=== PATIENT | female | born 1990 | race African-American/Black ===

== ENCOUNTER 2019-07-27 22:21 | Emergency (ER) | payer OTHER ==
[~2019-07-27] VITALS: Ht 162.6 cm; Wt 55.8 kg
--- NOTE | 2019-07-27 22:25 | NUR ---
PT BIB EMS D/T PT WAS FOUND IN A SOBER LIVING BATHROOM WEAK AND LETHARGIC. PT ADMITS TO TAKING 2 TABS XANAX DOSAGE UNKNOWN. PT DENIES SI/HI. NON ACUTE DISTRESS NOTED. VSS. PT CONNECTED TO THE DEWATERER OPERATOR AND POX
--- NOTE | 2019-07-27 22:53 | NUR ---
AWAITING URINE SAMPLE
[2019-07-27] MEDS ORDERED: IV NS 0.9% 1,000 ML BAG IV ONE (23:00)
[2019-07-27 23:03] LABS: CALCIUM, SERUM 8.5 mg/dL (8.5-10.1); CREATININE 0.6 mg/dL (0.6-1.3); POTASSIUM 2.9 mmol/L (3.5-5.1)
--- NOTE | 2019-07-27 23:08 | NUR ---
PT SENT TO CT
[2019-07-27 23:10] LABS: ALBUMIN 4.3 g/dL (3.4-5.0); BILIRUBIN,DIRECT 0.1 mg/dL (0.0-0.2); BILIRUBIN,TOTAL 0.2 mg/dL (0.2-1.0); SALICYLATE 4.9 mg/dL (2.8-20.0); TOTAL PROTEIN, SERUM 8.2 g/dL (6.4-8.2)
--- NOTE | 2019-07-27 23:14 | NUR ---
PT BACK FROM CT
--- NOTE | 2019-07-27 23:16 | NUR ---
Patient is resting comfortably in bed. Easily aroused. VSS.
[2019-07-27 23:17] LABS: BASOPHILS # (AUTO) 0.1 /CMM (0.0-0.2); BASOPHILS % (AUTO) 0.9 % (0.0-2.0); HEMATOCRIT 26 % (33-45); HEMOGLOBIN 7.8 g/dL (11.5-14.8); LYMPHOCYTES # (AUTO) 3.5 /CMM (0.8-4.8); LYMPHOCYTES % (AUTO) 38.4 % (20.0-44.0); MEAN CORPUSCULAR HGB CONC 30 g/dl (31.0-36.0); MEAN CORPUSCULAR VOLUME 62 fL (82-100); MONOCYTES # (AUTO) 0.3 /CMM (0.1-1.30); MONOCYTES % (AUTO) 3.1 % (2.0-12.0); NEUTROPHILS # (AUTO) 5.2 /CMM (1.8-8.9); NEUTROPHILS % (AUTO) 56.6 % (43.0-81.0); PLATELET COUNT (AUTO) 497 /CMM (150-450); RED BLOOD CELL COUNT(AUTO) 4.29 MIL/uL (4.0-5.2); WHITE BLOOD COUNT (AUTO) 9.2 K/uL (4.3-11.0)
--- NOTE | 2019-07-27 23:21 | NUR ---
"mary" Call her to cook pickled meat patient when ready. Mary is her sober living "mother"
[2019-07-27 23:38] LABS: LYMPHOCYTES % (MANUAL) 30 % (16-48); MONOCYTES % (MANUAL) 4 % (0-11.0); NEUTROPHILS % (MANUAL) 66 (42-76)
[2019-07-27 23:42] LABS: APPEARANCE,URINE Clear (CLEAR); BILIRUBIN,URINE Negative (NEGATIVE); BLOOD, URINE Negative Ery/uL (NEGATIVE); COLOR,URINE Light yellow (YELLOW); KETONES,URINE Negative (NEGATIVE); LEUKOCYTE ESTERASE ,URINE Negative (NEGATIVE); NITRITE, URINE Negative (NEGATIVE); PH,URINE 5.5 (5.0-8.0); PROTEIN,URINE Negative (NEGATIVE); UGLUCOSE Negative (NEGATIVE); UROBILINOGEN,URINE 0.2 EU/dL (0.2)
--- NOTE | 2019-07-27 23:42 | NUR ---
urine collected and sent to lab
--- NOTE | 2019-07-28 01:16 | NUR ---
PT RESTING COMFORTABLY IN BED. VSS. NO ACUTE DISTRESS NOTED. SITER AT BEDSIDE FOR SAFETY
--- NOTE | 2019-07-28 03:20 | NUR ---
Patient is resting comfortably in bed. Easily aroused. VSS.
--- NOTE | 2019-07-28 03:48 | NUR ---
SPOKE W/ AMILCAR FROM POISON CONTROL REGARDING LAB RESULTS.
[2019-07-28] MEDS ORDERED: POTASSIUM CHLORIDE 20 MEQ TAB.PRT.SR PO ONE ×3 (04:18)
--- NOTE | 2019-07-28 04:20 | NUR ---
CALLED PT'S FRIEND NUZHAT TO COME MEDICAL TECHNOLOGIST HEMATOLOGY PATIENT
--- NOTE | 2019-07-28 04:35 | NUR ---
IV removed. Catheter intact and site benign. Pressure and 4x4 applied to site. No bleeding noted. Patient discharged to home in stable condition. Written and verbal after care instructions given. Patient verbalizes understanding of instruction and RX. Pt ambulated with steady gait.
[2019-07-28 04:36] VITALS: BP 128/76
--- NOTE | 2019-07-28 04:36 | NUR ---
PT PICKED UP BY MOTHER.
== END 2019-07-28 04:42 | disposition home or self-care (01) ==
LOC: ER 22:23
DX: T42.4X1A Poisoning by benzodiazepines, accidental (unintentional), initial encounter (principal); R00.0 Tachycardia, unspecified; E87.6 Hypokalemia; F10.129 Alcohol abuse with intoxication, unspecified; D50.9 Iron deficiency anemia, unspecified; Y90.8 Blood alcohol level of 240 mg/100 ml or more; Y92.89 Other specified places as the place of occurrence of the external cause
CPT/HCPCS: 36415 ×2; 70450; 80048; 80076; 80305; 80307; 80329; 81001; 82962; 85025; 86850; 93005; 99285; G0480; J7030; 81000-TC

== ENCOUNTER 2019-11-09 20:25 | Emergency (ER) | payer OTHER ==
[~2019-11-09] VITALS: Ht 162.6 cm; Wt 60.8 kg
--- NOTE | 2019-11-09 20:37 | NUR ---
PT AAOX4. C/O HEADACHE & JOINT PAIN X2 DAYS. WAS DISCHARGED FROM [facility] AND STATED SHE RECIEVED 2 BAGS OF BLOOD DUE TO HER HAVING LOW HGB. NO ACUTE DISTRESS NOTED. PT AMBULATORY WITH STEADY GAIT. RR EVEN AND UNLABORED.
[2019-11-09] MEDS: IV NS 0.9% 1,000 ML BAG IV ONE (21:00)
[2019-11-09] MEDS: ONDANSETRON HCL/PF 4 MG/2 ML VIAL IVP ONE (21:00)
[2019-11-09] MEDS: MORPHINE SULFATE INJ 2 MG/ML DISP.SYRIN IV ONE (21:00)
[2019-11-09] MEDS ORDERED: ONDANSETRON HCL/PF 4 MG/2 ML VIAL ONE (21:08)
[2019-11-09] MEDS ORDERED: MORPHINE SULFATE INJ 4 MG/ML DISP.SYRIN ONE (21:09)
--- NOTE | 2019-11-09 21:25 | NUR ---
LINE INITIATED LAC 20G, LABS SENT.
--- NOTE | 2019-11-09 21:43 | NUR ---
Patient is resting comfortably in bed with eyes closed. Easily aroused. VSS.
[2019-11-09 21:48] LABS: CALCIUM, SERUM 8.8 mg/dL (8.5-10.1); CREATININE 0.5 mg/dL (0.6-1.3); POTASSIUM 3.4 mmol/L (3.5-5.1)
[2019-11-09 21:50] LABS: BASOPHILS # (AUTO) 0.1 /CMM (0.0-0.2); BASOPHILS % (AUTO) 1.2 % (0.0-2.0); EOSINOPHILS % (AUTO) 1.5 % (0.0-6.0); HEMATOCRIT 28 % (33-45); HEMOGLOBIN 8.5 g/dL (11.5-14.8); LYMPHOCYTES # (AUTO) 4.4 /CMM (0.8-4.8); LYMPHOCYTES % (AUTO) 38.2 % (20.0-44.0); MEAN CORPUSCULAR HGB CONC 31 g/dl (31.0-36.0); MEAN CORPUSCULAR VOLUME 67 fL (82-100); MONOCYTES # (AUTO) 0.7 /CMM (0.1-1.30); MONOCYTES % (AUTO) 5.7 % (2.0-12.0); NEUTROPHILS # (AUTO) 6.1 /CMM (1.8-8.9); NEUTROPHILS % (AUTO) 53.4 % (43.0-81.0); PLATELET COUNT (AUTO) 362 /CMM (150-450); RED BLOOD CELL COUNT(AUTO) 4.13 MIL/uL (4.0-5.2); WHITE BLOOD COUNT (AUTO) 11.5 K/uL (4.3-11.0)
[2019-11-09 22:26] VITALS: BP 122/72
--- NOTE | 2019-11-09 22:26 | NUR ---
Patient discharged to home in stable condition. Written and verbal after care instructions given. Patient verbalizes understanding of instruction and RX. Pt ambulated with steady gait. vss. IV removed. Catheter intact and site benign. Pressure and 4x4 applied to site. No bleeding noted.
[2019-11-09 23:11] LABS: BAND % (MANUAL) 2 % (0.0-5.0); EOSINOPHILS % (MANUAL) 2 % (0-4); LYMPHOCYTES % (MANUAL) 33 % (16-48); MONOCYTES % (MANUAL) 8 % (0-11.0); NEUTROPHILS % (MANUAL) 55 (42-76)
== END 2019-11-09 22:26 | disposition home or self-care (01) ==
LOC: ER 20:32
DX: D64.9 Anemia, unspecified (principal); R51 Headache
CPT/HCPCS: 36415; 80048; 85025; 96361; 96374; 96375; 99284; J2270; J2405; J7030

== ENCOUNTER 2019-11-13 14:05 | Emergency (ER) | payer OTHER ==
[~2019-11-13] VITALS: Ht 162.6 cm; Wt 59.0 kg
--- NOTE | 2019-11-13 14:43 | NUR ---
Patient discharged to home in stable condition. Written and verbal after care instructions given. Patient verbalizes understanding of instruction.
[2019-11-13 14:44] VITALS: BP 112/64
== END 2019-11-13 14:45 | disposition home or self-care (01) ==
LOC: ER 14:05
DX: D64.9 Anemia, unspecified (principal)

== ENCOUNTER 2020-05-14 19:09 | Inpatient (IN) | payer SELFPAY ==
[~2020-05-14] VITALS: Ht 162.6 cm; Wt 60.8 kg
--- NOTE | 2020-05-14 19:35 | NUR ---
TO ER BED 17 AMBULATORY BIBS FOR C/O HEADACHE AND SYNCOPAL EPISODE. PT REPORTS HEAVY VAGIAN BLEEDING. PT AAOX4 NO ACUTE DISTRESS NOTED, RESP EVEN AND UNLABORED. PENDING ER MD BOYER.
[2020-05-14 20:10] LABS: BILIRUBIN,URINE SMALL (NEGATIVE); COLOR,URINE YELLOW (YELLOW); LEUKOCYTE ESTERASE ,URINE Negative (NEGATIVE); NITRITE, URINE Negative (NEGATIVE); PH,URINE 5.5 (5.0-8.0); PROTEIN,URINE 100 mg/dl (NEGATIVE); UGLUCOSE Negative (NEGATIVE)
[2020-05-14 20:16] LABS: CALCIUM, SERUM 8.9 mg/dL (8.5-10.1); CREATININE 0.7 mg/dL (0.6-1.3); POTASSIUM 3.2 mmol/L (3.5-5.1)
[2020-05-14 20:20] LABS: BACTERIA,URINE Rare /HPF (None Seen); RBC,URINE 51-80 /HPF (0-2); SQUAMOUS EPITHELIAL CELL,UR Few /HPF (None Seen); WBC,URINE NONE SEEN /HPF (0-3)
[2020-05-14] MEDS ORDERED: KETOROLAC TROMETHAMINE INJ 60 MG/2 ML VIAL IM ONE (20:30)
[2020-05-14] MEDS ORDERED: KETOROLAC TROMETHAMINE INJ 30 MG/ML VIAL ONE (20:35)
[2020-05-14 21:12] LABS: EOSINOPHILS % (MANUAL) 1 % (0-4); LYMPHOCYTES % (MANUAL) 33 % (16-48); MONOCYTES % (MANUAL) 9 % (0-11.0); NEUTROPHILS % (MANUAL) 56 (42-76); REACTIVE LYMPHOCYTES 1 % (0-0)
[2020-05-14 21:15] LABS: BASOPHILS # (AUTO) 0.1 /CMM (0.0-0.2); BASOPHILS % (AUTO) 1.1 % (0.0-2.0); EOSINOPHILS % (AUTO) 0.9 % (0.0-6.0); HEMATOCRIT 22 % (33-45); LYMPHOCYTES # (AUTO) 4.5 /CMM (0.8-4.8); LYMPHOCYTES % (AUTO) 59.9 % (20.0-44.0); MEAN CORPUSCULAR HGB CONC 29 g/dl (31.0-36.0); MEAN CORPUSCULAR VOLUME 59 fL (82-100); MONOCYTES # (AUTO) 0.4 /CMM (0.1-1.30); MONOCYTES % (AUTO) 5.3 % (2.0-12.0); NEUTROPHILS # (AUTO) 2.4 /CMM (1.8-8.9); NEUTROPHILS % (AUTO) 32.8 % (43.0-81.0); PLATELET COUNT (AUTO) 574 /CMM (150-450); RED BLOOD CELL COUNT(AUTO) 3.76 MIL/uL (4.0-5.2); WHITE BLOOD COUNT (AUTO) 7.5 K/uL (4.3-11.0)
[2020-05-14 21:17] LABS: HEMOGLOBIN 6.3 g/dL (11.5-14.8)
--- NOTE | 2020-05-14 21:51 | NUR ---
STEPHANIA LUCAS TALKING TO VIVIAN SIMON DNP REGARDING PT ADMISSION.
--- NOTE | 2020-05-14 23:20 | NUR ---
ANTIGERN VOVID RESULTS: NEGATIVE
--- NOTE | 2020-05-14 23:23 | NUR ---
CALLED TELEVISION NEWS PRODUCER FOR BED
--- NOTE | 2020-05-14 23:38 | NUR ---
TELE 324-2
--- NOTE | 2020-05-14 23:51 | NUR ---
REPORT GIVEN TO CAMILLE
[2020-05-15] VITALS (15 sets, daily range): BP systolic 95–127; BP diastolic 55–87
[2020-05-15] MEDS ORDERED: ONDANSETRON HCL/PF 4 MG/2 ML VIAL IVP PRN
[2020-05-15] MEDS ORDERED: KETOROLAC TROMETHAMINE INJ 30 MG/ML VIAL IV PRN
[2020-05-15] MEDS ORDERED: MAGNESIUM HYDROXIDE 30 ML UDC PO PRN
[2020-05-15] MEDS ORDERED: ACETAMINOPHEN 325 MG TABLET PO PRN
[2020-05-15] MEDS ORDERED: ZOLPIDEM TARTRATE 5 MG TABLET PO PRN
--- NOTE | 2020-05-15 | NUR ---
MS RISK SPECIALIST NOTE RECEIVED PATIENT IN WHEEL CHAIR. PATIENT AMBULATED TO BED. STEADY GAIT. A/OX4. TOLERATING ROOM AIR. RESPIRATIONS ARE EVEN AND UNLABORED. NO S/S SOB NOTED. C/O ABD PAIN, CRAMPING. INFORMED WILL SEE WHAT PRESCRIBED FOR PAIN. IN NO APPARENT DISTRESS. IV ACCESS IN LAC#20 PATENT AND SALINE LOCKED. INFORMED PATIENT WILL BE HAVING A BLOOD TRANSFUSION D/T H/H IS LOW. CLOTHESPIN MACHINE OPERATOR OBTAINED VITALS AND BELONGING LIST. INITIAL PHYSICAL ASSESSMENT COMPLETED AT THIS TIME. SKIN ASSESSMENT COMPLETED, SKIN INTACT. BED IS LOW AND LOCKED, HOB ELEVATED IN SEMI FOWLERS, SIDE RAILS UP X2, MARCUS LIGHT WITHIN REACH. WILL CONTINUE TO MONITOR THROUGHOUT SHIFT.
[2020-05-15 00:02] LABS: IRON, SERUM 12 ug/dl (50-175); TOTAL IRON BINDING CAPACITY 572 ug/dl (250-450)
[2020-05-15 00:16] LABS: FERRITIN 2 ng/mL (8-388)
[2020-05-15] MEDS: HYDROCODONE/APAP 5/325MG TABLET PO PRN ×3 (00:57→11:42)
[2020-05-15] MEDS ORDERED: SOD FERRIC GLUC 125 MG in IV NS 0.9% 100 ML IV SCH ×2 (01:00→14:00)
--- NOTE | 2020-05-15 01:00 | NUR ---
MS RN NOTE GOING TO BEGIN BLOOD TRANSFUSION, INFORMED PATIENT OF POSSIBLE SIDE EFFECTS AND TO MAKE ME AWARE IF ANYTHING FEELINGS OR ADVERSE REACTIONS OCCUR. IF NOT ABLE TO INFORM ME THEN PRESS THE CALL LIGHT. PATIENT ACKNOWLEDGED. WILL CONTINUE TO MONITOR THROUGHOUT TRANSFUSION.
--- NOTE | 2020-05-15 01:17 | NUR ---
MS RN NOTE INFORMED COMMUNICATIONS MANAGER DR. VIVIAN SIMON THAT PATIENT HAS A SCHEDULED FERELICIT FOR 0100. BUT PATIENT IS CURRENTLY GETTING A BLOOD TRANSFUSION. OK TO HOLD OFF FERRLECIT PER MD. ORDER NOTED READ BACK AND CARRIED OUT.
--- NOTE | 2020-05-15 06:54 | NUR ---
MS RN CLOSING NOTE PATIENT RESTING IN BED. A/OX4. TOLERATING ROOM AIR. NO RESP DITRESS. MANAGED PAIN WITH NORCO 5. NO DISTRESS. IV ACCESS MAINTAINED IN LAC#20 RUNNING THE SECOND UNIT OF BLOOD. BED REMAINS LOW AND LOCKED, HOB ELEVATED IN SEMI FOWLERS, SIDE RAILS UP X2, MARCUS LIGHT WITHIN REACH. WILL ENDORSE TO ONCOMING SHIFT.
--- NOTE | 2020-05-15 07:51 | NUR ---
MS RN OPENING NOTE PT RECEIVED IN BED, RESTING COMFORTABLY AND IN NO ACUTE DISTRESS AT THIS TIME. PT IS A/O X 4, VERBAL AND ABLE TO MAKE NEEDS KNOWN. PT C/O THROBBING, CRAMPING PAIN ON LOWER ABDOMEN RATED 6/10. ADMINISTERED NORCO 5-325 1 TAB PO Q4H PRN PER PT'S REQUEST. PT IS ON ROOM AIR WITH NO S/SX OF SOB OR RESPIRATORY DISTRESS NOTED. PT HAS AN IV ACCESS ON LEFT AC G#20, PATENT, INTACT AND FLUSHING WELL WITH NO S/SX OF INFECTION, INFLAMMATION OR INFILTRATION NOTED. PT S/P BLOOD TRANSFUSION X 1 BAG OF PRBC FROM MANAGER MARKETING COMMUNICATION, TOLERATED WELL. SAFETY MEASURES IN PLACE: BED IN LOWEST POSITION AND LOCKED WITH BOTH UPPER SIDE RAILS UP X 2. CALL LIGHT WITHIN REACH. WILL CONTINUE TO MONITOR.
[2020-05-15] MEDS ORDERED: QUET100T PO ×2 (08:20→09:04)
[2020-05-15] MEDS ORDERED: LISD70CA PO ×2 (08:21→09:04)
[2020-05-15] MEDS ORDERED: TRAM50TA2 PO ×2 (08:23→09:04)
[2020-05-15 10:25] LABS: BASOPHILS % (AUTO) 0.7 % (0.0-2.0); EOSINOPHILS % (AUTO) 1.9 % (0.0-6.0); HEMATOCRIT 32 % (33-45); HEMOGLOBIN 9.6 g/dL (11.5-14.8); LYMPHOCYTES # (AUTO) 0.5 /CMM (0.8-4.8); LYMPHOCYTES % (AUTO) 9.6 % (20.0-44.0); MEAN CORPUSCULAR HGB CONC 30 g/dl (31.0-36.0); MEAN CORPUSCULAR VOLUME 67 fL (82-100); MONOCYTES # (AUTO) 0.7 /CMM (0.1-1.30); MONOCYTES % (AUTO) 15.1 % (2.0-12.0); NEUTROPHILS # (AUTO) 3.5 /CMM (1.8-8.9); NEUTROPHILS % (AUTO) 72.7 % (43.0-81.0); PLATELET COUNT (AUTO) 502 /CMM (150-450); WHITE BLOOD COUNT (AUTO) 4.8 K/uL (4.3-11.0)
[2020-05-15 10:41] LABS: CALCIUM, SERUM 9.1 mg/dL (8.5-10.1); CREATININE 0.7 mg/dL (0.6-1.3); MAGNESIUM 1.9 mg/dL (1.8-2.4); PHOSPHORUS 3.9 mg/dL (2.5-4.9); POTASSIUM 3.3 mmol/L (3.5-5.1)
[2020-05-15] MEDS ORDERED: POTASSIUM CHLORIDE 20 MEQ TAB.PRT.SR PO SCH (11:00)
--- NOTE | 2020-05-15 11:45 | NUR ---
MS RN NOTE PT C/O PAIN RATED 7/10. ADMINISTERED NORCO 5-325 TAB PO Q4H PRN FOR PAIN PER PT'S REQUEST. WILL CONTINUE TO MONITOR.
[2020-05-15] MEDS ORDERED: INFLUENZA VACCINE 2020-21 0.5 ML DISP.SYRIN IM ONE (12:00)
--- NOTE | 2020-05-15 12:08 | NUR ---
MS RN NOTE PT QUALIFIES FOR FLU VACCINE. NURSE OFFERED TO ADMINISTER FLU VACCINE, PT CONSENTED. FLU VACCINE 0.5ML ADMINISTERED TO PT IN RIGHT DELTOID, PT'S NON-DOMINANT ARM. PT TOLERATED FLU VACCINE WELL WITH NO C/O PAIN. NO IRRITATION OR INFLAMMATION NOTED ON SITE. WILL CONTINUE TO MONITOR.
--- NOTE | 2020-05-15 14:10 | NUR ---
MS PROBLEM MANAGER NOTE PT CLEARED TO DISCHARGE HOME. DISCHARGE EDUCATION, DISCHARGE PAPERWORK, MD PRESCRIPTION AND RESOURCES GIVEN TO PT. NAME ARM BAND/ID BAND REMOVED. IV ACCESS REMOVED. NO SKIN ISSUES IDENTIFIED. DISCHARGE INSTRUCTIONS GIVEN TO PT WHO VERBALIZED UNDERSTANDING. PT LEFT UNIT AT 14:10, AMBULATORY WITH STEADY GAIT, ACCOMPANIED BY ME TO THE LOBBY. PICKED UP VIA PRIVATE CAR BY ISI, MOTHER OF PT. CHARGE NURSE AWARE OF DISCHARGE.
== END 2020-05-15 14:10 | disposition home or self-care (01) | DRG 760 ==
LOC: ER 19:10 → MED 23:41
PROVIDERS: ADMIT Nurse Practitioner Acute Care; ATTEND Internal Medicine
PROC: 30233N1 Transfusion of Nonautologous Red Blood Cells into Peripheral Vein, Percutaneous Approach (ICD-10-PCS; principal; 2020-05-14)
DX: N92.0 Excessive and frequent menstruation with regular cycle (principal); D62 Acute posthemorrhagic anemia; E87.6 Hypokalemia; D50.9 Iron deficiency anemia, unspecified; G43.909 Migraine, unspecified, not intractable, without status migrainosus; Z98.890 Other specified postprocedural states
CPT/HCPCS: 36415; 76856-TC; 80048-TC; 80061-TC; 81001; 82728-TC; 83540-TC; 83735-TC; 84100-TC; 84703-TC; 85025-TC; 86850-TC; 87081-TC; C9803; G0378; J1885; J2916; J7030; J7050; P9016-BL; Q2036

== ENCOUNTER 2020-08-13 14:42 | Emergency (ER) | payer OTHER ==
[~2020-08-13] VITALS: Ht 162.6 cm; Wt 60.8 kg
[~2020-08-13 14:42] MED LIST: LISD70CA PO; QUET100T PO; TRAM50TA2 PO
--- NOTE | 2020-08-13 14:55 | NUR ---
patient came in to the er c/o chest sharp pain since this morning, 7/10 pain scale, non-radiating. on room air, breathing evenly and unlabored. Connected to the monitor and pulse ox. Kept comfortable, will continue to monitor accordingly.
[2020-08-13 15:11] LABS: BASOPHILS % (AUTO) 0.9 % (0.0-2.0); EOSINOPHILS % (AUTO) 1.5 % (0.0-6.0); HEMATOCRIT 27 % (33-45); HEMOGLOBIN 8.2 g/dL (11.5-14.8); LYMPHOCYTES # (AUTO) 1.9 /CMM (0.8-4.8); LYMPHOCYTES % (AUTO) 42.9 % (20.0-44.0); MEAN CORPUSCULAR HGB CONC 31 g/dl (31.0-36.0); MEAN CORPUSCULAR VOLUME 71 fL (82-100); MONOCYTES # (AUTO) 0.3 /CMM (0.1-1.30); MONOCYTES % (AUTO) 6.9 % (2.0-12.0); NEUTROPHILS # (AUTO) 2.1 /CMM (1.8-8.9); NEUTROPHILS % (AUTO) 47.8 % (43.0-81.0); PLATELET COUNT (AUTO) 655 /CMM (150-450); RED BLOOD CELL COUNT(AUTO) 3.72 MIL/uL (4.0-5.2); WHITE BLOOD COUNT (AUTO) 4.5 K/uL (4.3-11.0)
[2020-08-13 15:26] LABS: CALCIUM, SERUM 8.8 mg/dL (8.5-10.1); CARBON DIOXIDE 24 mmol/L (21-32); CHLORIDE 104 mmol/L (98-107); CREATININE 0.7 mg/dL (0.6-1.3); GLUCOSE 82 mg/dL (74-106); POTASSIUM 4.1 mmol/L (3.5-5.1); SODIUM SERUM 138 mmol/L (136-145); UREA NITROGEN, BLOOD 12 mg/dL (7-18)
--- NOTE | 2020-08-13 16:00 | NUR ---
Dr Alatorre at [facility] for an update and re-eval.
--- NOTE | 2020-08-13 16:08 | NUR ---
Patient discharged to home in stable condition. Written and verbal after care instructions given. Patient verbalizes understanding of instruction.
[2020-08-13 16:10] VITALS: BP 110/66
[2020-08-13 16:24] LABS: EOSINOPHILS % (MANUAL) 5 % (0-4); LYMPHOCYTES % (MANUAL) 38 % (16-48); MONOCYTES % (MANUAL) 4 % (0-11.0); NEUTROPHILS % (MANUAL) 53 (42-76)
== END 2020-08-13 16:10 | disposition home or self-care (01) ==
LOC: ER 14:49
DX: R42 Dizziness and giddiness (principal); R07.89 Other chest pain; D64.9 Anemia, unspecified; F17.200 Nicotine dependence, unspecified, uncomplicated; Z98.890 Other specified postprocedural states; Z79.899 Other long term (current) drug therapy
CPT/HCPCS: 36415; 71045-TC; 80048-TC; 84484-TC; 84703-TC; 85025-TC